=== PATIENT | female | born 1955 | race Caucasian/White ===

== ENCOUNTER → 2019-08-13 | Outpatient (CLI) | payer OTHER ==
--- NOTE | 2019-08-13 09:08 | US ---
EXAMINATION TYPE: US kidneys/renal and bladder DATE OF EXAM: 08/13/2019 COMPARISON: NONE CLINICAL HISTORY: r79.89. Elevated BUN and Creatinine EXAM MEASUREMENTS: Right Kidney: 8.0 x 3.9 x 3.1 cm Left Kidney: 10.0 x 5.2 x 4.6 cm Right Kidney: Measuring small. No hydronephrosis or masses seen Left Kidney: No hydronephrosis or masses seen Bladder: wnl as visualized. Not fully distended Bilateral Jets seen: Yes There is no evidence for hydronephrosis at this point in time. No nephrolithiasis is seen. No bon s are identified. The urinary bladder is anechoic. Bilateral ureteral jets are seen. IMPRESSION: Slight right renal atrophy in comparison to the left renal size. Cortical medullary diffe rentiation is maintained. No hydronephrosis is seen of either kidney.
== END | disposition home or self-care (01) ==
LOC: RADUSWWP 07:00
PROVIDERS: ATTEND Family Medicine
DX: N26.1 Atrophy of kidney (terminal) (principal)
CPT/HCPCS: 76770

== ENCOUNTER → 2020-12-30 | Outpatient (CLI) | payer OTHER ==
--- NOTE | 2020-12-30 13:03 | US ---
EXAMINATION TYPE: US abdomen complete DATE OF EXAM: 12/30/2020 COMPARISON: 08/13/2019 CLINICAL HISTORY: I10 Essential hypertension. Cholecystectomy EXAM MEASUREMENTS: Liver Length: 14.2 cm CBD: 0.5 cm Spleen: 12.3 cm Right Kidney: 6.5 x 2.7 x 3.0 cm Left Kidney: 10.3 x 4.5 x 5.1 cm Pancreas: Appears echogenic in appearance Liver: Diffusely heterogeneous liver parenchyma. A CT or MRI using liver protocol with IV contrast ma y be helpful. Gallbladder: Cholecystectomy CBD: wnl Spleen: wnl Right Kidney: Appears small in size compared to contralateral images taken Left Kidney: No hydronephrosis or shadowing renal calculi Upper IVC: wnl Abd Aorta: No AAA visualized mild atherosclerotic plaque. The intrahepatic portion of the IVC. Atherosclerotic aorta without evidence of aneurysm. Common bile duct is unremarkable. The spleen is unremarkable. No hydronephrosis or shadowing renal calculi. IMPRESSION: 1. Asymmetrically small right kidney. No evidence of hydronephrosis or shadowing renal calculi. 2. Atherosclerotic irregularity of the abdominal aorta without evidence of aneurysm. 3. Diffusely heterogeneous liver parenchyma. A CT or MRI using liver protocol with IV contrast is rec ommended for further evaluation. 4. Cholecystectomy.
== END | disposition home or self-care (01) ==
LOC: RADUSWWP 12:16
PROVIDERS: ATTEND Family Medicine
DX: N27.0 Small kidney, unilateral (principal); I70.0 Atherosclerosis of aorta; Z90.49 Acquired absence of other specified parts of digestive tract
CPT/HCPCS: 76700

== ENCOUNTER → 2024-12-20 | Outpatient (CLI) | payer MEDICARE, OTHER ==
--- NOTE | 2024-12-20 09:53 | CT ---
EXAMINATION TYPE: CT abdomen pelvis wo con DATE OF EXAM: 12/20/2024 COMPARISON: Ultrasound abdomen 2020 CLINICAL INDICATION: Female, 69 years old with history of R31.29 HEMATURIA, microscopic hematuria, TECHNIQUE: CT scan of the abdomen and pelvis is performed , patient injected with mL of ., (none if empty) Oral contrast used: with Oral Contrast (none if empty) CT DLP: 299.1 mGycm, Automated exposure control for dose reduction was used. FINDINGS: Within the limitations of a noncontrast study, the following observations are made. LUNG BASES: No significant abnormality is appreciated. LIVER/GB: Cholecystectomy clips are seen. PANCREAS: No significant abnormality is seen. SPLEEN: No significant abnormality is seen. ADRENALS: No significant abnormality is seen. KIDNEYS: Asymmetric diminished size and cortical thinning to the right kidney. No renal stones are se en bilaterally. No right-sided hydronephrosis. Mild to minimal left-sided pyelocaliectasis. No hydrou reter or obstructing ureter calculus. Poorly distended bladder without intraluminal calculus. BOWEL: Oral contrast reaches the level of the splenic flexure. No abnormal small or large bowel dila tation. Normal-appearing appendix ascending from the cecum. Terminal ileum appears within normal limi ts. UTERUS/ADNEXA: No gross abnormality seen. LYMPH NODES: No greater than 1cm abdominal or pelvic lymph nodes are appreciated. OSSEOUS STRUCTURES: There is sacralized L5 segment. There is vacuum disc phenomenon with moderate dis c space narrowing at L4-L5 level. There is moderate narrowing of both hip joints. OTHER: Mild peripheral calcified plaque of the ectatic abdominal aorta is seen. No greater than 3.0 c m aneurysmal dilatation IMPRESSION: 1. Source of hematuria not identified. If symptoms persist further investigation with CT urogram woul d be warranted. [facility], , 12/20/2024 9:51 AM
== END | disposition home or self-care (01) ==
LOC: RADCTMAIN 06:44
PROVIDERS: ATTEND Family Medicine
DX: R31.29 Other microscopic hematuria (principal); F17.200 Nicotine dependence, unspecified, uncomplicated
CPT/HCPCS: 74176

== ENCOUNTER → 2025-02-07 | Outpatient (CLI) | payer MEDICARE, OTHER ==
--- NOTE | 2025-02-07 15:26 | BD ---
EXAMINATION TYPE: Axial Bone Density DATE OF EXAM: 02/07/2025 CLINICAL HISTORY: 69 years old Female. ICD-10 CODE: Z78.0 POST NAHOMI , Additional History: Height: Weight: FRAX RISK QUESTIONS: Secondary Osteoporosis: yes 3. Menopause before 45: yes, at just 46 Current Tobacco Use: yes RISK FACTORS HISTORY OF: MEDICATIONS: vit d2 weekly, bp meds, Thyroid Medications: yes, [facility] EX[facility] MEASUREMENTS: Bone mineral densitometry was performed using the Eko System. Bone mineral density as measured about the Lumbar spine is: ----- L1-L4(G/cm2): 1.224 T Score Values are as follows: ----- L1: -0.9 ----- L2: -0.1 ----- L3: 1.0 ----- L4: 1.3 ----- L1-L4: 0.4 Z Score Values are as follows: ----- L1: 0.7 ----- L2: 1.4 ----- L3: 2.6 ----- L4: 2.8 ----- L1-L4: 1.9 Bone mineral density is her first dexxa study at [facility]. Bone mineral density about the R hip (g/cm2): 0.757 Bone mineral density about the L hip (g/cm2): 0.850 T Score values are as follows: -----R Neck: -2.3 -----L Neck: -0.1 -----R Total: -2.0 -----L Total: -1.3 Z Score values are as follows: -----R Neck: -0.8 -----L Neck: 1.5 -----R Total: -0.7 -----L Total: 0.0 Bone mineral density is her first scann at [facility]. FRAX%s: The graph provided illustrates a 14.7% chance for a major osteoporotic fx and a 5.1% chance f or the hips probability for fx in 10 years time. IMPRESSION: Osteopenia (T Score between -2.5 and -1). There is slightly increased risk of fracture and the patient may be considered for treatment. Re-Screen 2-5 years. NOTE: T-SCORE=SD OF THE YOUNG ADULT MEAN. [facility], , 02/07/2025 3:24 PM
--- NOTE | 2025-02-25 10:52 | MM ---
Reason for Exam: Screening (asymptomatic). Last mammogram was performed 2 year(s) and 10 month(s) ago. Patient History: Menarche at age 15. First Full-Term at age 23. Postmenopausal. 04/28/2022, Ultrasound-Guided Core Biopsy on the Right side. 2009, US breast needle core RT on the Right side. Sister had breast cancer, age 60. Risk Values: Lyric 5 year model risk: 4.4%. NCI Lifetime model risk: 13.9%. Prior Study Comparison: 03/10/2022 Bilateral Screening Mammogram, [facility]. 04/01/2022 Right Diagnostic Mammogram, [facility]. 04/01/2022 Right Diagnostic Ultrasound, [facility]. Tissue Density: The breasts are heterogeneously dense, which may obscure small masses. Findings: Analyzed By CAD. There is no suspicious group of microcalcifications or new suspicious mass in either breast. Overall Assessment: Benign, BI-RAD 2 Management: Screening Mammogram of both breasts in 1 year. . Patient should continue monthly self-breast exams. A clinical breast exam by your physician is recommended on an annual basis. This exam should not preclude additional follow-up of suspicious palpable abnormalities. Note on Lyric scores and lifetime risk: 1. A Lyric score greater than 3% is considered moderate risk. If this is the case, consider specialist referral to assess eligibility for a risk reducing agent. 2. If overall lifetime risk for the development of breast cancer is 20% or higher, the patient may qualify for future screening with alternating mammogram and breast MRI. [facility], , 02/25/2025 10:50 AM. Electronically signed and approved by: Bashir Underwood M.D. Radiologis
== END | disposition home or self-care (01) ==
LOC: RADBDWWP 07:01
PROVIDERS: ATTEND Family Medicine
DX: Z12.31 Encounter for screening mammogram for malignant neoplasm of breast (principal); Z13.820 Encounter for screening for osteoporosis; M85.89 Other specified disorders of bone density and structure, multiple sites; E55.9 Vitamin D deficiency, unspecified; R92.333 Mammographic heterogeneous density, bilateral breasts; Z85.3 Personal history of malignant neoplasm of breast; Z78.0 Asymptomatic menopausal state; Z80.3 Family history of malignant neoplasm of breast
CPT/HCPCS: 77063; 77067; 77080

== ENCOUNTER 2025-02-19 09:26 | Day surgery (SDC) | payer MEDICARE, OTHER ==
[2025-02-19 10:23] VITALS: TEMP 97.6
[2025-02-19] MEDS: LACTATED RINGERS 1,000 ML IV SCH (10:32)
[2025-02-19] MEDS: IV FLUID CONTINUATION 1,000 ML IV ONE (10:34)
[2025-02-19] MEDS ORDERED: PROPOFOL 10 MG/ML 20 ML VIAL IV ONE (10:59)
--- NOTE | 2025-02-19 11:05 | P.GSHP ---
History of Present Illness H&P Date: 02/19/25 Chief Complaint: Colon cancer screening with history of polyps 69-year-old female here for colonoscopy. Last colonoscopy 5 years ago. Patient had a sigmoid colon polyp at that time. Family history of colon cancer in her brother. No bowel complaints. Past Medical History Past Medical History: Cancer, Deep Vein Thrombosis (DVT), Hypertension, Renal Disease, Thyroid Disorder Additional Past Medical History / Comment(s): skin cancer, basal cell removed, dvt in left leg,varicose veins, dry skin stage 3 kidney disease History of Any Multi-Drug Resistant Organisms: None Reported Past Surgical History: Adenoidectomy, Cholecystectomy, Tonsillectomy Additional Past Surgical History / Comment(s): skin cancers Past Anesthesia/Blood Transfusion Reactions: No Reported Reaction Smoking Status: Current every day smoker, Vaper - Past Family History Father Family Medical History: No Reported History, Unable to Obtain Medications and Allergies Home Medications Medication Instructions Recorded Confirmed Type Levothyroxine Sodium [Synthroid] 75 mcg PO DAILY 02/18/25 02/19/25 History Valsartan 80 mg PO DAILY 02/18/25 02/19/25 History Vit D (Unk) 1 dose PO SA 02/18/25 02/19/25 History carvediloL 12.5 mg PO BID 02/18/25 02/19/25 History hydrOXYzine HCL 25 mg PO Q8HR PRN 02/18/25 02/19/25 History Allergies Allergy/AdvReac Type Severity Reaction Status Date / Time ibuprofen AdvReac Unknown Verified 02/19/25 10:34 Surgical - Exam Vital Signs Temp Pulse Resp BP Pulse Ox 97.6 F 56 L 16 144/77 99 02/19/25 10:19 02/19/25 10:19 02/19/25 10:19 02/19/25 10:19 02/19/25 10:19 Physical exam: General: Well-developed, well-nourished HEENT: Normocephalic, sclerae nonicteric Abdomen: Nontender, nondistended Extremities: No edema Neuro: Alert and oriented Assessment and Plan (1) Colon cancer screening Narrative/Plan: Will proceed with colonoscopy at this time. Current Visit: Yes Status: Acute Code(s): Z12.11 - ENCOUNTER FOR SCREENING FOR MALIGNANT NEOPLASM OF COLON SNOMED Code(s): 628640349
--- NOTE | 2025-02-19 11:19 | P.PCN ---
Date of Procedure: 02/19/25 Procedure(s) Performed: PREOPERATIVE DIAGNOSIS: Colon cancer screening with personal history of colon polyp and family history of colon cancer POSTOPERATIVE DIAGNOSIS: Descending colon polyp, diverticulosis PROCEDURE: Colonoscopy with snare polypectomy ANESTHESIA: MAC SURGEON: Mark Iqbal M.D. SPECIMENS: Polyp ENDOSCOPIC PROCEDURE: The patient was placed on the endoscopy table in the left decubitus position. The Olympus colonoscope was inserted into the anus and passed under direct visualization to the base of the cecum. The appendiceal orifice was visualized. From that point the scope was slowly withdrawn inspecting all surfaces carefully. There were no neoplastic inflammatory or polypoid lesions throughout the cecum, ascending, and transverse colon. In the descending colon there was a small polyp that was removed using the snare with cautery technique. The remainder of the descending sigmoid rectum was normal. The patient had mild scattered diverticulosis. Digital rectal examination was normal. The patient was taken to the recovery room in stable condition per anesthesia guidelines. RECOMMENDATIONS: Await biopsy results. Plan repeat colonoscopy 5 years.
[2025-02-19 11:27] VITALS: RESP 15
[2025-02-19 11:36] VITALS: BP 127/73; PULSE 73
== END 2025-02-19 12:12 | disposition home or self-care (01) ==
LOC: ORWHC2ENDO 09:26
PROVIDERS: ATTEND Surgery
DX: Z12.11 Encounter for screening for malignant neoplasm of colon (principal); D12.4 Benign neoplasm of descending colon; K57.30 Diverticulosis of large intestine without perforation or abscess without bleeding; I12.9 Hypertensive chronic kidney disease with stage 1 through stage 4 chronic kidney disease, or unspecified chronic kidney disease; N18.30 Chronic kidney disease, stage 3 unspecified; E07.9 Disorder of thyroid, unspecified; F17.290 Nicotine dependence, other tobacco product, uncomplicated; Z79.890 Hormone replacement therapy; Z79.899 Other long term (current) drug therapy; Z86.0100 Personal history of colon polyps, unspecified; Z86.718 Personal history of other venous thrombosis and embolism; Z80.0 Family history of malignant neoplasm of digestive organs; Z88.6 Allergy status to analgesic agent
CPT/HCPCS: 88305; 45385; J2704